=== PATIENT | male | born 1960 | race Caucasian/White ===

== ENCOUNTER → 2021-06-01 11:02 | Outpatient (BNVA) | payer BC, SELFPAY | PROVIDERS: PCP Family Medicine; Visit Provider Internal Medicine Cardiovascular Disease | DX: Z20.822 Contact with and (suspected) exposure to COVID-19 (principal) | CPT/HCPCS: 87635 ==

== ENCOUNTER 2021-06-25 06:43 | Outpatient (CLI) | payer BC, SELFPAY ==
[2021-06-25] VITALS (22 sets, daily range): BP systolic 129–174; BP diastolic 71–99; PULSE 52–67; RESP 15–20; TEMP 36.4–36.8; O2SAT 93–99; BMI 26.2
--- NOTE | 2021-06-25 07:00 | XACV_ITS ---
Ht: 183 cm Wt: 88 kg BSA: 2.12 m2 Gender: Male : 1960 Exam Type: Invasive Peripheral Vascular Procedure(s): Procedure Description: Peripheral Cath Diagnostic Procedure Procedure Description: Abdominal aortic angiography Procedure Description: Lower extremities' angiography Procedure Description: Peripheral vascular Intervention Procedure Description: PV Balloon Procedure Description: PV Stent Procedure Description: PV Atherectomy Procedure Description: Perclose Exam Priority: Routine Lower Extremity Interventional Findings Through right common femoral approach using long 6 [place] sheath with the help of glide wire and seeker were able to cross into left SFA into tibioperoneal trunk. Viper wire was exchanged with a Glidewire. Using 2.0 CSI arthrectomy bur r multiple runs of atherectomy was performed from left to ostial SFA to distal SFA. Multiple balloon angioplasties were performed. Good angiographic result was achieved in proximal to distal left SFA however very tight highly calcified ostial lesion was noted in the SFA which we were not able to open up with the balloon it was then treated with stent placement postdilated with balloon angioplasty. Excellent angiographic result with good flow was noted in proximal to distal left SFA tibioperoneal trunk with two-vessel runoff to the foot. . For inventory in detail please see the main body of the note. Conclusions Reason for peripheral angiogram: Lifestyle limiting claudication of the left leg. Abnormal CTA . Abdominal aortic angiogram: No stenosis or aneurysm noted.Bilateral common iliac, external and internal iliac arteries has luminal irregularity without significant stenosis. Bilateral common femoral and profunda femoral has luminal irregularities. Left SFA is ostially occluded reconstitute distal to the adductor canal through right collaterals, left popliteal artery has luminal regularity right SFA has luminal irregularity, right popliteal artery has luminal irregularity, bilateral tibioperoneal trunk has luminal regularity. Left anterior tibial artery has proximal total occlusion anterior tibial reconstituted through collaterals. Right anterior tibial noted to be occluded. Good single-vessel runoff with posterior tibial on the right side was noted up to the foot . null was treated with Balloon. null was treated with Balloon and Stent. Recommendations 1-Return to inpatient for close monitoring and routine cath care 2-Risk factor modification for secondary prevention 3-Statin and aspirin 81 mg life--long, if tolerated 4-Continue Plavix 75mg p.o. daily for at least three months. We will assess at the end of one year again to continue if further or not 5-Continue optimal medical management 6-Follow up with Dr. Lindo in four weeks and your primary care in 10 days. Hemodynamic Data Phase:Rest AO : 156.0 / 67.0 ( 100.0 ) @ 7:39:00 AM 165.0 / 76.0 ( 94.0 ) @ 8:07:00 AM 136.0 / 85.0 ( 110.0 ) @ 8:15:00 AM Access Site Site: Right Femoral artery Sheath Size: 6 Fr Hemost... Method: Suture Hemost... Success: Successful Procedure Details Findings Procedure Consent Obtained. Admit Source: Out Patient. Pre-Procedure Time Out. Identified patient by full name and date of as verbalized by the patient/guarantor. Does the consent match the physician's order: Yes. Accurate & Complete Informed Consent: Yes. Inpatient/Outpatient History & Physical on Chart: Yes. If H&P is completed, is and addenduem needed: N/A; If yes, is the addendum complete: N/A. Visualize and Verify Site with Patient/Guarantor: N/A. Relevant Radiology Images available: N/A. The risks, benefits, and alternatives of sedation and/or procedure were discussed by physician. The patient agrees to continue. Procedure started. Current diagnosis: PVD. PERRLA. Strong, equal hand car changer bilaterally. Lungs clear x 5 lobes. Correct patient, site and procedure confirmed by cath team. IV Site on Arrival: 20 gauge in the left anticubital. IV Fluids: 0.9% NaCl at KVO. 0 mL infused prior to lab nurse. Pre Procedural Pulses: bilateral posterior tibial was 1+. Pre Procedural Pulses: bilateral radial was 1+. Pre Procedural Pulses: right dorsalis pedis was 1+. Pre Procedural Pulses: left dorsalis pedis was Doppled. Oxygen started at 2liters/min via nasal canula. right groin was prepped with chloroprep then draped in the usual sterile fashion. Baseline sample Acquired. HR: 56 BPM. Physician notified. Physician arrived. Physician scrubbed in. Time out performed with cath team. Lidocaine 1% infiltrated to the right groin. Arterial access obtained with micropuncture set. A 5FrFr UF catheter in over wire. Abdominal aortogram performed in AP @ 10 mL/sec for a total of 30 mL. Glidewire in through UF catheter. UF catheter out over glidewire. Short 6fr sheath exchanged for 6fr 45cm flexor over glidewire. Seeker catheter inserted over the wire. Side port of sheath placed on KVO. glidewire out. Contrast hand injection through the seeker. Viperwire guidewire inserted through seeker. Seeker out over the viperwire. Orbital Atherectomy device inserted and atherectomy preformed to Left SFA. Out with orbital atherectomy device over the viper wire. Seeker in over the viperwire. Balloon inserted over the wire to the superficial femoral. Viper wire out. Glidewire in through seeker. Seeker out over glidewire. Inflation number : 1 A AB [place] 35 ATHLETIC EVENTS SCORER Catheter [id number] was prepped and advanced across the Superficial Femoral, Left , then inflated to 8 RIMA for 2:00 seconds. Inflation number: 2 The AB [place] 35 ATHLETIC EVENTS SCORER Catheter [id number] was reinflated across the Superficial Femoral, Left, to 0 RIMA for 1:34 seconds. Balloon out over wire. Results checked. Angiography preformed. Glidewire out. Angiography preformed, checking results. Angiography preformed of left groin. Glidewire in and advanced past left ostial sfa lesion. Balloon inserted over the wire to the ostial superficial femoral. Inflation number : 1 A AB [place] 35 OTW [id number] was prepped and advanced across the Ostial Superficial Femoral, Left , then inflated to 8 RIMA for 2:04 seconds. Angiography preformed, checking results. Balloon out over wire. Stent inserted over the wire to the ostial superficial femoral. Inflation Number : 2 A Absolute Pro 6.0x60mm -Lot Number#[id number] EXP 07-17-23 was prepped and advanced across the Ostial Superficial Femoral, Left. The stent was deployed. Inflation number: 3 The AB [place] 35 OTW [id number] was reinflated across the Ostial Superficial Femoral, Left, to 6 RIMA for 0:32 seconds. Inflation number: 4 The AB [place] 35 OTW [id number] was reinflated across the Ostial Superficial Femoral, Left, to 6 RIMA for 1:04 seconds. Results checked. Balloon out. Exchanging 6fr flexor for 6fr short sheath. Right leg runoff preformed. A Right femoral angiogram was performed to determine safe placement of closure device. Glidewire removed. Lidocaine 1% infiltrated to the right groin. Medication's Wasted: Nitro = 49.4 mg. Medication's Wasted: Heparin = 1000 unit. Medication's Wasted: Other = Versed 1 mg. Medication's Wasted: Other = fentanyl 75 mcg. Total IV fluids: 103 mL. PERRLA. Strong, equal hand car changer bilaterally. No VTE prophylaxis required. Post Procedure: Pulses reassessed and unchanged. Attempted to perclose and failed. Complications: None. Estimated blood loss: 5mL-10mL. Responsiveness - Normal response to verbal stimuli; alert and oriented, PERRLA. Airway - Unaffected, no intervention required; spontaneous ventilation. Circulation: W/N/L, pulses unchanged. Nausea/Vomiting: No. A Suture was successful obtaining hemostatsis at the Right Femoral artery insertion site. Arterial sheath flushed and connected to tranducer and pressure bag with heparinized saline. Post-op diagnosis: severe peripheral aterial disease. Atherectomy, balloon angioplasty to left sfa. Stent to ostial left SFA. Procedure completed. Patient transferred by bed to CPRU. Vital chart was stopped. Procedure Medications Start: 9:15 AM Stop: 9:15 AM Medication: Versed Amount: 1 mg Route: I.V. Start: 9:15 AM Stop: 9:15 AM Medication: Fentanyl Amount: 50 mcg Route: I.V. Start: 9:20 AM Stop: 9:20 AM Medication: Versed Amount: 1 mg Route: I.V. Start: 9:21 AM Stop: 9:21 AM Medication: Versed Amount: 1 mg Route: I.V. Start: 9:22 AM Stop: 9:22 AM Medication: Fentanyl Amount: 50 mcg Route: I.V. Start: 9:25 AM Stop: 9:25 AM Medication: Fentanyl Amount: 50 mcg Route: I.V. Start: 9:32 AM Stop: 9:32 AM Medication: Versed Amount: 1 mg Route: I.V. Start: 9:32 AM Stop: 9:32 AM Medication: Fentanyl Amount: 50 mcg Route: I.V. Start: 9:38 AM Stop: 9:38 AM Medication: Heparin Amount: 5000 units Route: I.V. Start: 9:45 AM Stop: 9:45 AM Medication: Versed 1 mg and Fentanyl 25 mcg Route: I.V. Start: 9:52 AM Stop: 9:52 AM Medication: Heparin Amount: 3000 units Route: I.V. Start: 9:57 AM Stop: 9:57 AM Medication: Versed 1 mg and Fentanyl 25 mcg Route: I.V. Start: 10:00 AM Stop: 10:00 AM Medication: Nitrogylcerin Amount: 400 mcg Route: I.C. Start: 10:03 AM Stop: 10:03 AM Medication: Fentanyl Amount: 25 mcg Route: I.V. Start: 10:05 AM Stop: 10:05 AM Medication: Fentanyl Amount: 25 mcg Route: I.V. Start: 10:11 AM Stop: 10:11 AM Medication: Versed 1 mg and Fentanyl 25 mcg Route: I.V. Start: 10:15 AM Stop: 10:15 AM Medication: Nitrogylcerin Amount: 400 mcg Route: I.A. I, the attending physician, have reviewed and verified all procedure medications. Yes, all medications given per verbal order History/Risk Factors Hypertension: Yes Dyslipidemia: No Peripheral Arterial Disease (PAD): No Obesity: No Renal Disease: No Tobacco Use: Current/Recent(w/in 1 year) Prior Interventions PCI: No CABG: No Valve Surgery: No Report Signatures Finalized by Serjio Lindo MD on 07/02/2021 07:50 PM
[2021-06-25 07:24] LABS: Basophils # 0.1 10^3/uL (0.0-0.1); Basophils % 0.7 %; Eosinophils # 0.1 10^3/uL (0.0-0.8); Eosinophils % 1.7 %; Hemoglobin 15.2 g/dL (11.7-16.6); Lymphocytes # 1.5 10^3/uL (0.8-4.8); Lymphocytes % 21.5 %; Mean Corpuscular Hemoglobin 30.6 pg (28.0-34.0); Mean Corpuscular Volume 92.6 fl (80-94); Monocytes # 0.6 10^3/uL (0.2-0.9); Monocytes % 8.1 %; Neutrophils # 4.82 10^3/uL (1.8-7.7); Neutrophils % 67.7 %; Nucleated Red Blood Cells % 0 %; Platelet Count 194 10^3/cmm (130-400); Red Blood Count 4.97 10^6/uL (4.1-5.3); Red Cell Distribution Width 13.4 % (12.1-15.1); White Blood Count 7.1 10^3/uL (4.0-10.0)
[2021-06-25 07:46] LABS: Anion Gap 14.1 (5-19); Blood Urea Nitrogen 13 mg/dL (8-23); Calcium 9.4 mg/dL (8.5-10.5); Carbon Dioxide 25 mmol/L (22-29); Chloride 106 mmol/L (98-107); Glomerular Filtration Rate 76.2 mL/min (90-130); Glucose 92 mg/dL (65-115); Osmolality Calculated 292 mOsm/kg (285-295); Potassium 4.1 mmol/L (3.5-5.1); Sodium 141 mmol/L (136-145)
[2021-06-25 07:57] LABS: SARS Covid-2 Antigen Negative (Negative)
[2021-06-25] MEDS: diphenhydrAMINE 50 mg Capsule PO (08:04)
--- NOTE | 2021-06-25 09:05 | P.HP_ITS ---
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 LOUISE on the left side was 0.45. He has been advised to quit smoking. He has absent pulses in the left foot. Patient has been explained all risk benefit and alternative for the procedure he understand risk for stroke major minor bleed conscious sedation urgent emergent vascular surgery amputation of the leg due to thromboembolic phenomena. He understand risk for transfusion. He would like to proceed with it. He is a candidate for dual antiplatelet therapy. Medications/Allergies* Home Medications Medication Instructions Recorded Confirmed Type lisinopril 5 mg tablet 10 mg PO DAILY tab 05/21/21 06/22/21 History meloxicam 7.5 mg tablet (Mobic) 15 mg PO DAILY tab 05/21/21 06/22/21 History omeprazole 20 mg capsule,delayed 20 mg PO DAILY 06/04/21 06/22/21 History release Allergies/Adverse Reactions Allergy/AdvReac Type Severity Reaction Status Date / Time No Known Allergies Allergy Verified 06/25/21 08:13 Current Medications: Generic Name Dose Route Start Last Admin Trade Name Freq PRN Reason Stop Dose Admin Sodium Chloride 1,000 mls @ 50 mls/hr 06/25/21 07:00 06/25/21 08:04 Sodium Chloride 0.9% IV 06/26/21 02:59 Not Given .Q20H ONE Pertinent History/Comorbid Conditions* Medical History (Updated 05/21/21 @ 20:24 by Serjio Lindo MD) Claudication, class III Family History (Updated 05/21/21 @ 12:21 by Monica George RN) Diabetes CAD (coronary artery disease) Myocardial infarct Father Brother Hypertension Mother Social History Smoking and tobacco status: current every day smoker (2 ppd X 45 years) cigarettes Packs smoked per day: 2 Years cigarettes smoked: 45 Pertinent Exam Findings alert, oriented x 3, clear to auscultation bilaterally, regular rate & rhythm and operative site marked Recommendations Surgery/Procedure today Coding Level of Care Code New Pt Acute Field Crop Technical Officer for Chg Fwd Patient Type New History Detailed Exam Detailed Medical Decision Making Moderate Complexity
--- NOTE | 2021-06-25 09:10 | W.PM.OPSUD ---
Surgery/Procedure H&P Update DATE OF PROCEDURE: June 25, 2021 DATE H&P PERFORMED: 06/25/21 PREOP DIAGNOSIS: Lifestyle limiting claudication of left PLANNED PROCEDURE: Operation Date: 06/25/21 08:30 Proposed Procedures p Peripheral Diagnostic(Bilateral) - Serjio Lindo MD AIRWAY EVAL/ANESTHESIA PLAN: ASA II and Risks, benefits & alternatives of sedation and/or procedure discussed
--- NOTE | 2021-06-25 10:45 | SUR.PHASEI ---
RECEIVED PATIENT BACK FROM THE REFUND CLERK VIA COT S/P INTERVENTION OF THE LEFT SFA. PATIENT DROWSY BUT AWAKENS EASILY TO VOICE COMMAND. ALERT AND ORIENTED X 3. SIGNIFICANT OTHER AT BEDSIDE. DR MON UPDATED THE SIGNIFICANT OTHER AT BEDSIDE. CATTLE SORTER PLACED AND VITAL SIGNS OBTAINED. 6FR SHEATH INTACT TO THE RIGHT GROIN TO PRESSURE BAG. DRESSING DRY AND INTACT. BILATERAL PT AND DP PULSES PALPABLE AT A 1. 20 G PIV TO THE LEFT AC PATENT AND INTACT. NS INFUSING PER ORDERS. POST FEMORAL ACTIVITY INSTRUCTIONS GIVEN TO THE PATIENT AND HIS SIGNIFICANT OTHER. THEY VERBALIZED THEIR UNDERSTANDING. NO OTHER ASSESSMENT CHANGES FROM PRE CATH ASSESSMENT. WILL TRANSFER TO CSU A BED BECOMES AVAILABLE.
--- NOTE | 2021-06-25 12:52 | SUR.PHASEI ---
REPORT CALLED TO [facility]. PATIENT THEN TRANSFERRED VIA BED TO ROOM 101.
[2021-06-25 14:40] LABS: Partial Thromboplastin Time 28.3 SECONDS (23.9-36.7)
[2021-06-25] MEDS: lisinopril 10 mg Tablet PO (14:40)
[2021-06-25] MEDS: aspirin 325 mg EC Tablet PO (14:40)
[2021-06-26] VITALS (42 sets, daily range): BP systolic 109–153; BP diastolic 64–92; PULSE 51–91; RESP 11–32; TEMP 36.8; O2SAT 88–97
[2021-06-26 03:46] LABS: Basophils % 0.5 %; Eosinophils # 0.2 10^3/uL (0.0-0.8); Eosinophils % 2.7 %; Hematocrit 41.4 % (42.0-52.0); Lymphocytes # 1.5 10^3/uL (0.8-4.8); Lymphocytes % 19.7 %; Mean Corpuscular HGB Conc 33.8 g/dL (30.0-36.0); Mean Corpuscular Hemoglobin 30.9 pg (28.0-34.0); Mean Corpuscular Volume 91.4 fl (80-94); Mean Platelet Volume 11.6 fL (7.4-10.4); Monocytes # 0.8 10^3/uL (0.2-0.9); Monocytes % 10.7 %; Neutrophils # 4.86 10^3/uL (1.8-7.7); Neutrophils % 66.1 %; Nucleated Red Blood Cells % 0 %; Platelet Count 174 10^3/cmm (130-400); Red Blood Count 4.53 10^6/uL (4.1-5.3); Red Cell Distribution Width 13.3 % (12.1-15.1); White Blood Count 7.4 10^3/uL (4.0-10.0)
[2021-06-26 04:13] LABS: Anion Gap 12.5 (5-19); Blood Urea Nitrogen 11 mg/dL (8-23); Calcium 8.3 mg/dL (8.5-10.5); Carbon Dioxide 25 mmol/L (22-29); Chloride 103 mmol/L (98-107); Glomerular Filtration Rate 98.6 mL/min (90-130); Glucose 91 mg/dL (65-115); Osmolality Calculated 281 mOsm/kg (285-295); Potassium 4.5 mmol/L (3.5-5.1); Sodium 136 mmol/L (136-145)
--- NOTE | 2021-06-26 08:44 | PC.CHAP ---
Pastoral Care Encounter/Spiritual Assessment Type of Contact [] Declined compliance examiner visit [] Patient/Family/Request visit [] Outpatient visit [] Follow-up visit [] Physician referral [] Code/Alert [x] Routine visit [] Staff referral [] Actively dying [] Patient sleeping [] Family support [] [] Out of room [] Palliative care [] [] Receiving care in room [] Pre-surgical visit [] Trauma [] Long length of stay [] ICU visit [] Other: Relational/Emotional Strength [x] Patient feels connected with others/family/visitors/staff [] Distress [] Loneliness/isolation [] Abandonment Spirituality of Patient [x] Person of Lisa [] Attends Presybeterian of their Lisa [] Believes in Prayer [] Reads Bible or Orthodox materials [] There are Spiritual issues to be addressed Audiovisual Aids Technician Interventions [] Prayer [x] Active listening [x] Non-anxious presence [x] Spiritual/emotional support [] Crisis/trauma care [] Spiritual counseling [] Bereavement support [] Provided bereavement packet [] Provided Bible/devotional materials [] Provided toy/stuffed animal, coloring book to patient or family member [] Provided Communion [] Anointing/[place] [] Salvation [x] Completed spiritual assessment [] Other: Impact on Illness or Injury [] Angry [] Fearful [] Anxious [] Often cries [] Exhaustion [] Unable to work [] Unable to attend sikh [] Unable to walk/stand [] Unable to read [] Unable to drive [] Unable to eat/drink [] Unable to sleep [] Unable to be with family [] Patient intubated [] Other: Summary Pt stated his step daughter has been present but just left to get him a cup of coffee. He lives around but his step daughter resides in and indicated she is staff at the hospital. He has no children of his own, but has three step children, but . Still has a good relationship with step children. Pt indicated he grew up in and around Church churches and described his 84 year old mother as a preacher. Pt was reluctant to speak about spiritual matters. Declined prayer. Time spent with patient 10m
--- NOTE | 2021-06-26 09:34 | PC.NURSE ---
Spoke with Dr judd with concerns of patients medication orders for 325 Aspirin daily and no plavix following stent placement on 06/25/21 instructions to Avendaño aspirin dose to 81mg po daily and add Plavix 75mg PO daily
[2021-06-26] MEDS: aspirin 81 mg EC Tablet PO (10:11)
[2021-06-26] MEDS: clopidogrel 75 mg Tablet PO (10:11)
--- NOTE | 2021-06-26 11:42 | P.DS_ITS ---
Discharge Providers Date of Discharge: June 26, 2021 Attending Provider at Discharge: Serjio Lindo MD Primary Care Provider: Scot Reina MD Reason for Visit Reason for Visit: 71844 i73.9 Brief History: 60-year-old male past medical history significant for tobacco abuse hypertension hyperlipidemia for lifestyle limiting claudication underwent peripheral angiogram noted to have chronically occluded ostial to distal SFA. It was treated with arthrectomy and balloon angioplasty. Excellent angiographic result was achieved. No overnight event postop care remain uncomplicated. This morning patient is walking around without any difficulty. He has good lower extremity pulses including DP and posterior tibial. He is being discharged home. Right groin wound looks good Physical Exam Chest: OTHER: GENERAL: Patient is alert, awake and oriented x3. NECK: No jugular vein distension. HEENT: No cyanosis. No icterus. No pallor. HEART: Regular S1 and S2. No murmur, rub or gallop. LUNGS: Clear to auscultate bilaterally. ABDOMEN: Soft, nontender and nondistended. Positive bowel sounds. No guarding, rebound or tenderness. CENTRAL NERVOUS SYSTEM: Grossly nonfocal. EXTREMITIES: Lower extremities without edema bilaterally. Pulses palpable in the lower extremities, both dorsalis pedis and posterior tibial. Right groin looks good no hematoma no bruising Discharge Data Studies Completed and Pending Pending at discharge Category Date Time Status PROTEIN PURIFICATION SCIENTIST request for service Routine Exams 06/25/21 07:00 Taken Laboratory Results WBC 7.4 10^3/uL (4.0-10.0) 06/26/21 02:40 RBC 4.53 10^6/uL (4.1-5.3) 06/26/21 02:40 Hgb 14.0 g/dL (11.7-16.6) 06/26/21 02:40 Hct 41.4 % (42.0-52.0) L 06/26/21 02:40 MCV 91.4 fl (80-94) 06/26/21 02:40 MCH 30.9 pg (28.0-34.0) 06/26/21 02:40 MCHC 33.8 g/dL (30.0-36.0) 06/26/21 02:40 RDW 13.3 % (12.1-15.1) 06/26/21 02:40 Plt Count 174 10^3/cmm (130-400) 06/26/21 02:40 MPV 11.6 fL (7.4-10.4) H 06/26/21 02:40 Neut % (Auto) 66.1 % 06/26/21 02:40 Lymph % (Auto) 19.7 % 06/26/21 02:40 [place] % (Auto) 10.7 % 06/26/21 02:40 Eos % (Auto) 2.7 % 06/26/21 02:40 Baso % (Auto) 0.5 % 06/26/21 02:40 Neut # (Auto) 4.86 10^3/uL (1.8-7.7) 06/26/21 02:40 Lymph # (Auto) 1.5 10^3/uL (0.8-4.8) 06/26/21 02:40 [place] # (Auto) 0.8 10^3/uL (0.2-0.9) 06/26/21 02:40 Eos # (Auto) 0.2 10^3/uL (0.0-0.8) 06/26/21 02:40 Baso # (Auto) 0.0 10^3/uL (0.0-0.1) 06/26/21 02:40 Nucleated RBC % (auto) 0 % 06/26/21 02:40 Nucleated RBCs # 0.0 /100WBC 06/26/21 02:40 APTT 28.3 SECONDS (23.9-36.7) 06/25/21 14:16 Sodium 136 mmol/L (136-145) 06/26/21 02:40 Potassium 4.5 mmol/L (3.5-5.1) 06/26/21 02:40 Chloride 103 mmol/L (98-107) 06/26/21 02:40 Carbon Dioxide 25 mmol/L (22-29) 06/26/21 02:40 Anion Gap 12.5 (5-19) 06/26/21 02:40 BUN 11 mg/dL (8-23) 06/26/21 02:40 Creatinine 0.8 mg/dL (0.7-1.2) 06/26/21 02:40 GFR Calculation 98.6 mL/min (90-130) 06/26/21 02:40 Glucose 91 mg/dL (65-115) 06/26/21 02:40 Calculated Osmolality 281 mOsm/kg (285-295) L 06/26/21 02:40 Calcium 8.3 mg/dL (8.5-10.5) L 06/26/21 02:40 SARS-CoV-2 Ag (Rapid) Negative (Negative) 06/25/21 07:02 Vitals Last Vital Signs Temp 98.3 F 06/26/21 04:14 Pulse 66 06/26/21 09:46 Resp 20 H 06/26/21 09:46 BP 113/64 06/26/21 09:46 Pulse Ox 95 06/26/21 09:46 Discharge Plan Discharge Patient Disposition: Home Prescriptions: New clopidogrel 75 mg Tablet 75 mg PO DAILY Qty: 90 3RF aspirin 81 mg Tablet,Delayed Release (Dr/Ec) 81 mg PO DAILY Qty: 90 3RF atorvastatin 20 mg tablet 20 mg PO QPM Qty: 30 4RF Continued lisinopril 5 mg tablet 10 mg PO DAILY 0RF meloxicam [Mobic] 7.5 mg tablet 15 mg PO DAILY 0RF omeprazole 20 mg Capsule,Delayed Release(Dr/Ec) 20 mg PO DAILY Qty: 30 3RF Discharge Orders: Discharge Order (Routine); Ordered 06/26/21 Ordered By: Serjio Lindo Referrals: Dominic Bryant M.D [Physician] - 6 months (Please follow-up with Dr. Bryant on Dec.18 at 2:00P.M. Your previous appointment on August 20 at has been cancelled. If have any questions or need to reschedule. Please call [phone]) Lisa Zazueta FNP [Nurse Practitioner] - (Please follow-up with Lisa Zazueta on at 9:15A.M. If you have any questions or need to reschedule. Please call ) Diet: Cardiac Activity: Increase activity as tolerated Patient Instructions: Aspirin (By mouth), Atorvastatin (By mouth), Clopidogrel (By mouth), Peripheral Vascular Stent Placement (DC), Peripheral Vascular Angioplasty (DC), Post Angiogram Home Care Instructions, Quitting Smoking Activity Restrictions/Additional Instructions: Follow-up with Ms. Lisa Zazueta in 7 days. Follow-up with Dr. Bryant in 6- month. Please quit smoking. Continue Plavix for 3 months at least Discharge Date/Time: 06/26/21 12:20 Discharge Attestations Time Spent in Discharge Care*: less than 30 min Quality Metrics Clinical Quality Measures [ No reported AMI, CVA or VTE this stay] Coding Level of Care Code Established Pt Acute Chg FW DC note Patient Type Established History Detailed Exam Detailed Medical Decision Making Moderate Complexity
--- NOTE | 2021-06-26 12:20 | PC.NURSE ---
Discharge Note Patient discharged to Home via private vehicle accompanied by Family. Discharge instructions reviewed with patient and/or entry level account representative. Mobile pharmacy medications and/or prescriptions provided. Belongings/home medications returned.
== END 2021-06-26 12:20 | disposition home or self-care (01) ==
LOC: CCL 07:50 → CSU 13:12
PROVIDERS: PCP Family Medicine; Visit Provider Internal Medicine Cardiovascular Disease
DX: I70.222 Atherosclerosis of native arteries of extremities with rest pain, left leg (principal); I10 Essential (primary) hypertension; Z82.49 Family history of ischemic heart disease and other diseases of the circulatory system; Z83.3 Family history of diabetes mellitus; F17.210 Nicotine dependence, cigarettes, uncomplicated; E78.5 Hyperlipidemia, unspecified
CPT/HCPCS: 36415; 37227; 75625; 75716; 80048; 85025; 85730; 87426; C1724; C1725; C1760; C1769; C1876; C1887; C1894; J1644; J2250; J3010; J3490; J7030; Q0163; Q9967

== ENCOUNTER → 2021-07-04 11:45 | Outpatient (BNVA) | payer BC, SELFPAY | PROVIDERS: PCP Family Medicine; Visit Provider Nurse Practitioner Family | DX: Z09 Encounter for follow-up examination after completed treatment for conditions other than malignant neoplasm (principal); I73.9 Peripheral vascular disease, unspecified | CPT/HCPCS: 80048 ==

== ENCOUNTER 2022-03-04 12:14 | Outpatient (CLI) | payer BC, SELFPAY ==
[2022-03-04 12:54] LABS: Basophils # 0.1 10^3/uL (0.0-0.1); Eosinophils # 0.1 10^3/uL (0.0-0.8); Eosinophils % 2.3 %; Hematocrit 45.5 % (42.0-52.0); Hemoglobin 14.8 g/dL (11.7-16.6); Lymphocytes # 1.5 10^3/uL (0.8-4.8); Mean Corpuscular HGB Conc 32.5 g/dL (30.0-36.0); Mean Corpuscular Hemoglobin 30.8 pg (28.0-34.0); Mean Corpuscular Volume 94.8 fl (80-94); Mean Platelet Volume 12.2 fL (7.4-10.4); Monocytes # 0.5 10^3/uL (0.2-0.9); Monocytes % 8.7 %; Neutrophils # 3.88 10^3/uL (1.8-7.7); Neutrophils % 63.7 %; Nucleated Red Blood Cells % 0 %; Platelet Count 171 10^3/cmm (130-400); Red Cell Distribution Width 13.1 % (12.1-15.1); White Blood Count 6.1 10^3/uL (4.0-10.0)
[2022-03-04 13:06] LABS: INR 0.98 (0.83-1.21); Prothrombin Time (Patient) 13.3 Seconds (12.0-15.1)
[2022-03-04 13:39] LABS: Anion Gap 11.3 (5-19); Blood Urea Nitrogen 11 mg/dL (8-23); Calcium 9.4 mg/dL (8.5-10.5); Carbon Dioxide 27 mmol/L (22-29); Chloride 104 mmol/L (98-107); Glomerular Filtration Rate 68.1 mL/min (90-130); Glucose 96 mg/dL (65-115); Osmolality Calculated 285 mOsm/kg (285-295); Potassium 4.3 mmol/L (3.5-5.1); Sodium 138 mmol/L (136-145)
== END 2022-03-04 12:15 | disposition home or self-care (01) ==
LOC: LAB 12:16
PROVIDERS: PCP Family Medicine; Visit Provider Internal Medicine
DX: I73.9 Peripheral vascular disease, unspecified (principal); R58 Hemorrhage, not elsewhere classified
CPT/HCPCS: 36415; 80048; 85025; 85610

== ENCOUNTER 2022-03-07 07:08 | Outpatient (CLI) | payer BC, SELFPAY ==
[2022-03-06 11:48] VITALS: BMI 26.0
[2022-03-07] VITALS (9 sets, daily range): BP systolic 144–167; BP diastolic 77–97; PULSE 42–60; RESP 10–18; TEMP 36.8; O2SAT 96–99
--- NOTE | 2022-03-07 08:30 | XACV_ITS ---
Ht: 183 cm Wt: 87 kg BSA: 2.11 m2 Any Known Allergies: No known allergies Gender: Male : 1960 Exam Type: Invasive Peripheral Vascular Procedure(s): Procedure Description: Peripheral Cath Diagnostic Procedure Procedure Description: Lower extremities' angiography Procedure Description: Peripheral vascular Intervention Procedure Description: PV Balloon Exam Priority: Routine Abdominal Diagnostic Findings Distal abdominal aorta: Patent. Lower Extremity Diagnostic Findings Indication: Patient has been having severe, lifestyle limiting claudication specially left lower extremity. It is causing difficulty with working as well. Right lower extremity Right common iliac artery: Patent Right external iliac artery: Patent Right internal iliac artery has diffuse disease Right common femoral artery: Patent Right profunda: Patent Right SFA: Patent Right popliteal artery: Patent Right anterior tibial artery: Occluded Right TP segment: Patent Right posterior tibial artery: Patent Right peroneal artery: Occluded. Left lower extremity Left common iliac artery: Patent Left external iliac artery: Patent Left external iliac artery has diffuse disease Left common femoral artery: Patent and Left profunda: Patent Left SFA: Has patent ostial stent with mild in-stent restenosis. In mid to distal segment SFA has critical 95% stenosis. Left popliteal artery: Patent Left anterior tibial artery: Occluded Left TP segment: Patent Left peroneal artery: Patent Left posterior tibial artery: Patent. Left Proximal Superficial Femoral Artery: 70% stenosis. Left Mid-longitudinal Superficial Femoral Artery: 70% stenosis. Left Distal Superficial Femoral Artery: 70% stenosis. Lower Extremity Interventional Findings Procedure detail: We obtained access in right common femoral artery. Using UF catheter abdominal aortic angiogram with runoff was performed. This was followed by placement of long sheath extending to the left external iliac artery. IV heparin was administered. Using Glidewire we crossed the stenosis. The stenosis was dilated with 6.0 x 100 mm balloon. We also dilated to the ostial SFA stent. final angiogram was performed that showed excellent vessel expansion and no significant stenosis in SFA. At this time Glidewire was removed and short sheath was inserted in right common femoral artery. This was followed by runoff of right lower extremity through the short sheath. Sheath was sutured in place for removal later. Patient left the Hoop Cutter in a stable condition.. Left Proximal Superficial Femoral Artery: 40-50 % stenosis treated with AB ARMADA 35 OTW [id number]. Left Mid-longitudinal Superficial Femoral Artery: 95 % stenosis treated with AB ARMADA 35 OTW [id number]. Left Distal Superficial Femoral Artery: 95 % stenosis treated with AB ARMADA 35 OTW [id number]. Conclusions Severe mid to distal left SFA stenosis s/p successful revascularization with balloon angioplasty. Left Proximal Superficial Femoral Artery was treated with Balloon. Left Mid-longitudinal Superficial Femoral Artery was treated with Balloon. Left Distal Superficial Femoral Artery was treated with Balloon. Recommendations Continue aspirin and Plavix. Smoking cessation recommended again. Outpatient cardiology follow-up in 4 weeks. Hemodynamic Data Phase:Rest AO : 11.0 / 8.0 ( 9.0 ) @ 10:00:00 AM 156.0 / 76.0 ( 107.0 ) @ 10:06:00 AM Access Site Site: Right Femoral artery Sheath Size: 6 Fr Hemost... Method: Suture Hemost... Success: Successful Procedure Details Findings Procedure Consent Obtained. Pre-Procedure Time Out. Identified patient by full name and date of as verbalized by the patient/guarantor. Does the consent match the physician's order: Yes. Accurate & Complete Informed Consent: Yes. Inpatient/Outpatient History & Physical on Chart: Yes. If H&P is completed, is and addenduem needed: No. Visualize and Verify Site with Patient/Guarantor: N/A. Relevant Radiology Images available: Yes. Patient's family will be in CPRU room #4. Dr. Bryant will update at the completion of the case. Equipment: 6F - Femoral. Cardiac Cath Pack. ACIST Manifold Kit Model BT 2000. Heparinized Saline (2 units/mL), 1000 mL bag. Kit, Micropuncture. The risks, benefits, and alternatives of sedation and/or procedure were discussed by physician. The patient agrees to continue. Procedure started. Correct patient, site and procedure confirmed by cath team. Current diagnosis: PAD. PERRLA. Strong, equal hand kitman bilaterally. Lungs clear x 5 lobes. IV Site on Arrival: 20 gauge in the left anticubital. IV Fluids: 0.9% NaCl at KVO. 0 mL infused prior to petroleum refinery laborer. To infuse at 75ml/hr. Pre Procedural Pulses: right dorsalis pedis was 1+. Pre Procedural Pulses: left dorsalis pedis was Doppled. Pre Procedural Pulses: right posterior tibial was Doppled. Pre Procedural Pulses: left posterior tibial was 1+. Oxygen started at 2liters/min via nasal canula. bilateral groins was prepped with chloroprep then draped in the usual sterile fashion. Baseline sample Acquired. HR: 51 BPM. Physician arrived. Physician scrubbed in. Time out performed with cath team. Lidocaine 1% infiltrated to the right groin. Arterial access obtained with micropuncture set. A 5 Fr UF catheter in over wire. Abdominal aortogram performed in AP @ 10 mL/sec for a total of 30 mL. Add inventory: 0.035 x 260cm Stiff angled glidewire. Glidewire in through the UF to advance. Catheter removed over the glide wire. Sheath upsized to a 6 Fr. Left common femoral selected and arteriogram with runoff performed @ 10 mL/sec for a total of 30 mL. Left common femoral selected and arteriogram with runoff performed @ 10 mL/sec for a total of 30 mL in DSA. Left common femoral selected and arteriogram with runoff performed @ 10 mL/sec for a total of 10 mL. Inflation number : 1 A AB ARMADA 35 OTW [id number] was prepped and advanced across the Mid Superficial Femoral, Left , then inflated to 6 RIMA for 1:35 seconds. Inflation number: 2 The AB ARMADA 35 OTW [id number] was reinflated across the Mid Superficial Femoral, Left, to 6 RIMA for 1:03 seconds. Inflation number: 1 The AB ARMADA 35 OTW [id number] was reinflated across the Distal Superficial Femoral, Left, to 4 RIMA for 1:02 seconds. Inflation number: 1 The AB ARMADA 35 OTW [id number] was reinflated across the Proximal Superficial Femoral, Left, to 4 RIMA for 0:48 seconds. Balloon out over wire. Glidewire advanced across the lesion in the left SFA. Glidewire out. Left common femoral selected and arteriogram with runoff performed @ 10 mL/sec for a total of 30 mL. Sheath upsized to a 6 Fr. Sheath injected in Right common femoral artery and runoff performed @ 10mL/sec for a total of 30mL. Sheath injected in Right common femoral artery and runoff performed @ 10mL/sec for a total of [address] Bryant scrubbed out. A Suture was successful obtaining hemostatsis at the Right Femoral artery insertion site. Sheath(s) sutured into position with 2-0 silk and sterile 4x4's and Op-site applied over the site. No oozing or signs and symptoms of hematoma noted. Arterial sheath flushed and connected to tranducer and pressure bag with heparinized saline. Post Procedure: Pulses reassessed and unchanged. PERRLA. Strong, equal hand kitman bilaterally. No VTE prophylaxis required. Medication's Wasted: Nitro = 49.6 mg. Medication's Wasted: Heparin = 1000 units. Total IV fluids: 100 mL. Post-op diagnosis: Balloon angioplasty of left SFA. Complications: none. Estimated blood loss: 5mL-10mL. Responsiveness - Normal response to verbal stimuli; alert and oriented, PERRLA. Airway - Unaffected, no intervention required; spontaneous ventilation. Circulation: W/N/L, pulses unchanged. Nausea/Vomiting: No. Vital chart was stopped. Procedure completed. Patient transferred by bed to ICU. Procedure Medications Start: 8:52 AM Stop: 8:52 AM Medication: Benadryl Amount: 50 mg Route: I.V. Start: 8:52 AM Stop: 8:52 AM Medication: Versed Amount: 1 mg Route: I.V. Start: 8:52 AM Stop: 8:52 AM Medication: Fentanyl Amount: 50 mcg Route: I.V. Start: 8:55 AM Stop: 8:55 AM Medication: Versed Amount: 1 mg Route: I.V. Start: 8:56 AM Stop: 8:56 AM Medication: Versed Amount: 1 mg Route: I.V. Start: 8:56 AM Stop: 8:56 AM Medication: Fentanyl Amount: 50 mcg Route: I.V. Start: 9:13 AM Stop: 9:13 AM Medication: Heparin Amount: 5000 units Route: I.V. Start: 9:16 AM Stop: 9:16 AM Medication: Versed Amount: 1 mg Route: I.V. Start: 9:23 AM Stop: 9:23 AM Medication: Nitrogylcerin Amount: 400 mcg Route: I.A. Start: 9:47 AM Stop: 9:47 AM Medication: Plavix Amount: 300 mg Route: P.O. I, the attending physician, have reviewed and verified all procedure medications. Yes, all medications given per verbal order History/Risk Factors Hypertension: Yes Dyslipidemia: No Peripheral Arterial Disease (PAD): Yes Obesity: No Renal Disease: No Tobacco Use: Current/Recent(w/in 1 year) Prior Interventions PCI: No CABG: No Valve Surgery: No Report Signatures Finalized by Dominic Bryant MD on 03/07/2022 05:26 PM
--- NOTE | 2022-03-07 08:50 | W.PM.OPSUD ---
Surgery/Procedure H&P Update DATE OF PROCEDURE: March 07, 2022 DATE H&P PERFORMED: 06/25/21 PREOP DIAGNOSIS: Lifestyle limiting claudication PRIMARY INDICATION FOR PROCEDURE: Life style limiting claudication PLANNED PROCEDURE: Operation Date: 03/07/22 08:30 Proposed Procedures p Peripheral Angio 39542,I73.9(Not Applicable) - Dominic Bryant M.D Possible percutaneous intervention PATIENT REASSESSED PRIOR TO SEDATION, WITH NO CHANGE NOTED: Yes PHYSICAL EXAM: alert, oriented x 3, clear to auscultation bilaterally and regular rate & rhythm AIRWAY EVAL/ANESTHESIA PLAN: ASA III, Local Anesthesia, Risks, benefits & alternatives of sedation and/or procedure discussed and Patient agrees to continue as planned ADDITIONAL INFORMATION: Moderate sedation
[2022-03-07 11:58] LABS: Partial Thromboplastin Time 54.8 SECONDS (23.9-36.7)
[2022-03-07] MEDS: acetaminophen 325 mg Tablet 650 MG PO (12:00)
--- NOTE | 2022-03-07 12:51 | PC.CHAP ---
x Pastoral Care Encounter/Spiritual Assessment Type of Contact [] Declined senior technical support engineer visit [] Patient/Family/Request visit [] Outpatient visit [] Follow-up visit [] Physician referral [] Code/Alert [x] Routine visit [] Staff referral [] Actively dying [] Patient sleeping [] Family support [] [] Out of room [] Palliative care [] [] Receiving care in room [] Pre-surgical visit [] Trauma [] Long length of stay [x] ICU visit [] Other: Relational/Emotional Strength [] Patient feels connected with others/family/visitors/staff [] Distress [] Loneliness/isolation [] Abandonment Spirituality of Patient [] Person of Lisa [] Attends Anabaptism of their Lisa [] Believes in Prayer [] Reads Bible or Jewish materials [] There are Spiritual issues to be addressed Rn Wound Care Interventions [] Prayer [] Active listening [] Non-anxious presence [] Spiritual/emotional support [] Crisis/trauma care [] Spiritual counseling [] Bereavement support [] Provided bereavement packet [] Provided Bible/devotional materials [] Provided toy/stuffed animal, coloring book to patient or family member [] Provided Communion [] Anointing/[place] [] Salvation [x] Completed spiritual assessment [] Other: Impact on Illness or Injury [] Angry [] Fearful [] Anxious [] Often cries [] Exhaustion [] Unable to work [] Unable to attend faith [] Unable to walk/stand [] Unable to read [] Unable to drive [] Unable to eat/drink [] Unable to sleep [] Unable to be with family [] Patient intubated [] Other: Summary Time spent with patient x
[2022-03-07] MEDS: atorvastatin 40 mg Tablet 20 MG PO (17:38)
[2022-03-07] MEDS: temazepam 15 mg Capsule PO (19:37)
[2022-03-07] MEDS: sodium chloride 0.9% 1,000 ML 100 ML IV (19:38)
[2022-03-08 05:11] LABS: Basophils # 0.1 10^3/uL (0.0-0.1); Eosinophils # 0.2 10^3/uL (0.0-0.8); Eosinophils % 2.8 %; Hematocrit 41.6 % (42.0-52.0); Hemoglobin 13.6 g/dL (11.7-16.6); Lymphocytes # 1.3 10^3/uL (0.8-4.8); Lymphocytes % 21.8 %; Mean Corpuscular HGB Conc 32.7 g/dL (30.0-36.0); Mean Corpuscular Hemoglobin 31.5 pg (28.0-34.0); Mean Corpuscular Volume 96.3 fl (80-94); Mean Platelet Volume 11.6 fL (7.4-10.4); Monocytes # 0.6 10^3/uL (0.2-0.9); Monocytes % 10.4 %; Neutrophils # 3.68 10^3/uL (1.8-7.7); Neutrophils % 63.8 %; Nucleated Red Blood Cells % 0 %; Platelet Count 150 10^3/cmm (130-400); Red Blood Count 4.32 10^6/uL (4.1-5.3); White Blood Count 5.8 10^3/uL (4.0-10.0)
[2022-03-08 05:46] VITALS: PULSE 47
[2022-03-08 05:52] LABS: Anion Gap 11.3 (5-19); Blood Urea Nitrogen 10 mg/dL (8-23); Calcium 8.8 mg/dL (8.5-10.5); Carbon Dioxide 25 mmol/L (22-29); Chloride 107 mmol/L (98-107); Glucose 90 mg/dL (65-115); Osmolality Calculated 287 mOsm/kg (285-295); Potassium 4.3 mmol/L (3.5-5.1); Sodium 139 mmol/L (136-145)
--- NOTE | 2022-03-08 07:34 | PM.DCS ---
Discharge Providers Date of Admission: 03/07/2022 Date of Discharge: March 08, 2022 Attending Provider at Admission: Dominic Bryant MD Attending Provider at Discharge: Dominic Bryant M.D Primary Care Provider: Scot Reina MD Reason for Visit Reason for Visit: I73.9 Peripheral vascular disease, unspecified Brief History: 61-year-old man reports medical history of PAD, hypertension presented for outpatient peripheral angiogram with possible intervention secondary to severe lifestyle limiting and work limiting claudication symptoms. Hospital Course Hospital Course Patient's peripheral angiogram showed severe, 95% stenosis in the mid to distal SFA. He underwent successful revascularization with balloon angioplasty. Patient was observed overnight and stayed stable. His labs are normal. Smoking cessation strongly recommended. Physical Exam Narrative: GENERAL: Patient is alert, awake and oriented x3. [] NECK: No jugular vein distension. [] HEENT: No cyanosis. No icterus. No pallor. [] HEART: Regular S1 and S2. No murmur, rub or gallop. [] LUNGS: Clear to auscultate bilaterally. [] ABDOMEN: Soft CENTRAL NERVOUS SYSTEM: Grossly nonfocal. [] EXTREMITIES: Lower extremities with 1+ edema bilaterally.? 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 TEACHER PRIMARY request for service Routine Exams 03/07/22 08:30 Completed Laboratory Results WBC 5.8 10^3/uL (4.0-10.0) 03/08/22 04:46 RBC 4.32 10^6/uL (4.1-5.3) 03/08/22 04:46 Hgb 13.6 g/dL (11.7-16.6) 03/08/22 04:46 Hct 41.6 % (42.0-52.0) L 03/08/22 04:46 MCV 96.3 fl (80-94) H 03/08/22 04:46 MCH 31.5 pg (28.0-34.0) 03/08/22 04:46 MCHC 32.7 g/dL (30.0-36.0) 03/08/22 04:46 RDW 13.0 % (12.1-15.1) 03/08/22 04:46 Plt Count 150 10^3/cmm (130-400) 03/08/22 04:46 MPV 11.6 fL (7.4-10.4) H 03/08/22 04:46 Neut % (Auto) 63.8 % 03/08/22 04:46 Lymph % (Auto) 21.8 % 03/08/22 04:46 [place] % (Auto) 10.4 % 03/08/22 04:46 Eos % (Auto) 2.8 % 03/08/22 04:46 Baso % (Auto) 1.0 % 03/08/22 04:46 Neut # (Auto) 3.68 10^3/uL (1.8-7.7) 03/08/22 04:46 Lymph # (Auto) 1.3 10^3/uL (0.8-4.8) 03/08/22 04:46 [place] # (Auto) 0.6 10^3/uL (0.2-0.9) 03/08/22 04:46 Eos # (Auto) 0.2 10^3/uL (0.0-0.8) 03/08/22 04:46 Baso # (Auto) 0.1 10^3/uL (0.0-0.1) 03/08/22 04:46 Nucleated RBC % (auto) 0 % 03/08/22 04:46 Nucleated RBCs # 0.0 /100WBC 03/08/22 04:46 APTT 54.8 SECONDS (23.9-36.7) H 03/07/22 11:39 Sodium 139 mmol/L (136-145) 03/08/22 04:46 Potassium 4.3 mmol/L (3.5-5.1) 03/08/22 04:46 Chloride 107 mmol/L (98-107) 03/08/22 04:46 Carbon Dioxide 25 mmol/L (22-29) 03/08/22 04:46 Anion Gap 11.3 (5-19) 03/08/22 04:46 BUN 10 mg/dL (8-23) 03/08/22 04:46 Creatinine 1.0 mg/dL (0.7-1.2) 03/08/22 04:46 GFR Calculation 76.0 mL/min (90-130) L 03/08/22 04:46 Glucose 90 mg/dL (65-115) 03/08/22 04:46 Calculated Osmolality 287 mOsm/kg (285-295) 03/08/22 04:46 Calcium 8.8 mg/dL (8.5-10.5) 03/08/22 04:46 Vitals Last Vital Signs Temp 98.2 F 03/07/22 08:21 Pulse 47 L 03/08/22 05:46 Resp 18 03/07/22 19:00 BP 167/97 03/07/22 12:00 Pulse Ox 96 03/07/22 19:00 O2 Del Method 03/07/22 19:00 Discharge Plan Discharge Patient Disposition: Home Prescriptions: New cilostazol 50 mg tablet 50 mg PO BID Qty: 120 2RF Continued lisinopril 5 mg tablet 10 mg PO DAILY atorvastatin 20 mg tablet 20 mg PO QPM Qty: 30 4RF clopidogrel 75 mg Tablet 75 mg PO DAILY Qty: 90 3RF aspirin 81 mg Tablet,Delayed Release (Dr/Ec) 81 mg PO DAILY Qty: 90 3RF Discontinued meloxicam [Mobic] 7.5 mg tablet 15 mg PO DAILY Discharge Orders: Discharge Order (Routine); Ordered 03/08/22 Ordered By: Dominic Bryant Referrals: Dominic Bryant M.D [Physician] - 6 Weeks Lisa Zazueta FNP [Nurse Practitioner] - 7-10 days Diet: Cardiac Activity: Increase activity as tolerated Patient Instructions: Peripheral Vascular Angioplasty (DC) Activity Restrictions/Additional Instructions: Please do not lift more than 10 pounds of weight for the next 5 days Stand Alone Forms: Work/School Release Discharge Attestations Time Spent in Discharge Care*: less than 30 min Quality Metrics Clinical Quality Measures [ No reported AMI, CVA or VTE this stay] Coding Level of Care Code Acute Chg FW DC note
[2022-03-08] MEDS: acetaminophen 325 mg Tablet 650 MG PO (08:25)
[2022-03-08 09:00] VITALS: BP 149/86
--- NOTE | 2022-03-08 10:01 | PC.NURSE ---
assumed care at this time
--- NOTE | 2022-03-08 11:11 | PC.NURSE ---
All d/c instructions educated to patient, no questions or concerns expressed, patient's work leave paper work filled out. patient out of facility at this time transported home by
== END 2022-03-08 11:14 | disposition home or self-care (01) ==
LOC: CCL 07:14 → ICU 08:51
PROVIDERS: PCP Family Medicine; Visit Provider Internal Medicine
DX: I70.202 Unspecified atherosclerosis of native arteries of extremities, left leg (principal); I10 Essential (primary) hypertension; E78.5 Hyperlipidemia, unspecified; F17.210 Nicotine dependence, cigarettes, uncomplicated
CPT/HCPCS: 37224; 75625; 75716; 80048; 85025; 85730; 99152; 99153; C1725; C1769; C1887; C1894; J1200; J1644; J2250; J3010; J3490; J7030; Q9967

== ENCOUNTER → 2022-03-19 14:34 | Outpatient (BNVA) | payer BC, SELFPAY | PROVIDERS: PCP Family Medicine; Visit Provider Nurse Practitioner Family | DX: I73.9 Peripheral vascular disease, unspecified (principal) | CPT/HCPCS: 36415; 80048 ==

== ENCOUNTER → 2024-10-08 09:40 | Outpatient (BNVA) | payer BC, SELFPAY | PROVIDERS: PCP Family Medicine; Visit Provider Internal Medicine | DX: I73.9 Peripheral vascular disease, unspecified (principal) | CPT/HCPCS: 80048; 85025 ==

== ENCOUNTER 2024-10-12 07:02 | Outpatient (CLI) | payer BC, SELFPAY ==
[2024-10-12] VITALS (24 sets, daily range): BP systolic 114–146; BP diastolic 68–94; PULSE 56–73; RESP 10–25; TEMP -7.7–36.6; O2SAT 93–99
--- NOTE | 2024-10-12 07:30 | XACV_ITS ---
Ht: 183 cm Wt: 88 kg BSA: 2.13 m2 Any Known Allergies: No known allergies Gender: Male : 1960 Exam Type: Invasive Peripheral Vascular Procedure(s): Procedure Description: Peripheral Cath Diagnostic Procedure Procedure Description: Abdominal aortic angiography Procedure Description: Lower extremities' angiography Exam Priority: Routine Abdominal Diagnostic Findings Distal abdominal aorta is patent. Lower Extremity Diagnostic Findings INDICATION: 64 year old man with significant PAD history and having severe lifestyle limiting claudication. CTA showing severe PAD mainly below the knee. Left leg symptoms worse than the right side. Plan for peripheral angiogram with possible intervention. Left lower extremity findings: Left common iliac artery is patent. Left external iliac artery patent. Left internal iliac artery is patent. Left common femoral artery is patent. Distal common femoral artery has patent stent that extends into the SFA. Patent profunda artery. Left SFA has diffuse mild luminal irregularities. Patent popliteal artery. Below the knee anterior tibial artery is subtotally occluded. Good two-vessel runoff to the foot with posterior tibial artery and peroneal artery.. Right lower extremity findings: Right common iliac artery is patent. Right external iliac artery is patent. Right common femoral artery is patent. Right SFA is patent. Right profunda artery is patent. Right popliteal artery is patent. Below the knee has single-vessel runoff with patent posterior tibial artery. Anterior tibial artery and peroneal artery are totally occluded with collateral flow.. Conclusions Below the knee bilateral peripheral artery disease. Given presentation is with claudication, will uptitrate medical therapy at this time. Recommendations Increase dose of cilostazol to 100mg BID. Outpatient cardiology follow up in 2 weeks. Access Site Site: Right Femoral artery Sheath Size: 6 Fr Hemost... Method: Mynx Hemost... Success: Successful Procedure Details Findings Procedure Consent Obtained. Admit Source: Out Patient. Pre-Procedure Time Out. Identified patient by full name and date of as verbalized by the patient/guarantor. Does the consent match the physician's order: Yes. Accurate & Complete Informed Consent: Yes. Inpatient/Outpatient History & Physical on Chart: Yes. If H&P is completed, is and addenduem needed: No; If yes, is the addendum complete: N/A. Visualize and Verify Site with Patient/Guarantor: N/A. Relevant Radiology Images available: Yes. Pre-op teaching completed and patient verbalized understanding. The risks, benefits, and alternatives of sedation and/or procedure were discussed by physician. The patient agrees to continue. Procedure started. PERRLA. Strong, equal hand parking garage manager bilaterally. Lungs clear x 5 lobes. IV Site on Arrival: 20 gauge in the right anticubital. IV Fluids: 0.9% NaCl at KVO. 0 mL infused prior to manager cath lab. Pre Procedural Pulses: bilateral dorsalis pedis was 1+. Pre Procedural Pulses: bilateral posterior tibial was 3+. Pre Procedural Pulses: bilateral radial was 3+. Oxygen started at 2liters/min via nasal canula. bilateral groins was prepped with chloroprep then draped in the usual sterile fashion. Baseline sample Acquired. HR: 58 BPM. Physician arrived. Physician scrubbed in. Immediate Pre-Procedure Time Out. Correct Patient: Yes; Correct Procedure: Yes; Correct Site: Yes; Correct Patient Position: Yes; Correct Supplies: Yes; Dried Flammable Prep: Yes; Blood Products Available: N/A;. Lidocaine 1% infiltrated to the right groin. Arterial access obtained with micropuncture set. A 5FrFr UF catheter in over wire. Abdominal aortogram with runoff performed in AP @ 10 mL/sec for a total of 30 mL. Glidewire inserted. Catheter advanced to the left external iliac artery. Left external iliac selected and arteriogram with runoff performed @ 10 mL/sec for a total of 30 mL. DSA performed of the left lower leg. Left superficial femoral selected and arteriogram performed. Catheter removed OTW. Sheath injected in Right common femoral artery and runoff performed. DSA performed of the right lower leg. A Mynx was successful obtaining hemostatsis at the Right Femoral artery insertion site. Post Procedure: Pulses reassessed and unchanged. PERRLA. Strong, equal hand parking garage manager bilaterally. No VTE prophylaxis required. Medication's Wasted: Other = Fentanyl 50mcg Versed 1 mg. Medication's Wasted: Heparin = 1000 units. Total IV fluids: 50 mL. Post-op diagnosis: PAD. Complications: None. Estimated blood loss: 5mL-10mL. Responsiveness - Normal response to verbal stimuli; alert and oriented, PERRLA. Airway - Unaffected, no intervention required; spontaneous ventilation. Circulation: W/N/L, pulses unchanged. Nausea/Vomiting: No. Procedure completed. Patient transferred by stretcher to CPRU. Vital chart was stopped. Procedure Medications Start: 8:55 AM Stop: 8:55 AM Medication: Versed Amount: 1 mg Route: I.V. Start: 8:55 AM Stop: 8:55 AM Medication: Fentanyl Amount: 50 mcg Route: I.V. Start: 9:01 AM Stop: 9:01 AM Medication: Fentanyl Amount: 25 mcg Route: I.V. Start: 9:05 AM Stop: 9:05 AM Medication: Versed Amount: 1 mg Route: I.V. Start: 9:20 AM Stop: 9:20 AM Medication: Fentanyl Amount: 25 mcg Route: I.V. Start: 9:25 AM Stop: 9:25 AM Medication: Versed Amount: 1 mg Route: I.V. Start: 9:25 AM Stop: 9:25 AM Medication: Fentanyl Amount: 25 mcg Route: I.V. I, the attending physician, have reviewed and verified all procedure medications. Yes, all medications given per verbal order History/Risk Factors Hypertension: Yes Dyslipidemia: No Peripheral Arterial Disease (PAD): Yes Obesity: No Renal Disease: No Tobacco Use: Current/Recent(w/in 1 year) Prior Interventions PCI: No CABG: No Valve Surgery: No Report Signatures Finalized by Dominic Bryant MD on 10/30/2024 10:26 AM
[2024-10-12] MEDS: diphenhydrAMINE 50 mg Capsule PO (08:07)
--- NOTE | 2024-10-12 08:15 | SUR.PHASEII ---
POST OP NOTE Received patient from research lab assistant. Status post cardiac catheterization via the right radial approach. TR Band in place- 15 ml air in the band. Verbal post cath instuctions went over with the patient/family. They understood well. No pain reported. Call light within reach. Informed to call for needs. Vitals and assessments per flowsheet. Post op fluids- 100 ml/hr of normal saline per verbal order.
--- NOTE | 2024-10-12 08:46 | W.PM.OPSFHP ---
Same Day Surgery H&P Indication for Procedure/HPI DATE OF PROCEDURE: October 12, 2024 CHIEF COMPLAINT/INDICATIONFOR SURGICAL PROCEDURE: Severe bilateral lifestyle limiting claudication PREOP DIAGNOSIS: Severe bilateral lifestyle limiting claudication PLANNED PROCEDURE: Operation Date: 10/12/24 08:30 Proposed Procedures p Peripheral Diagnostic - Periph angio bilat(Bilateral) - Dominic Bryant M.D Possible percutaneous peripheral intervention 64 year old man with significant PAD history and having severe lifestyle limiting claudication. CTA showing severe PAD mainly below the knee. Left leg symptoms worse than the right side. Plan for peripheral angiogram with possible intervention Medications/Allergies* Home Medications ?Medication ?Instructions ?Recorded ?Confirmed ?Type lisinopril 5 mg tablet 10 mg PO DAILY 05/21/21 10/08/24 History meloxicam 15 mg tablet 15 mg PO DAILY 03/19/22 10/08/24 History nystatin 100,000 unit/gram topical 1 applic topical BID PRN Rash 03/19/22 10/08/24 History cream acetaminophen 500 mg capsule 500 mg PO QID PRN Pain 07/05/22 10/08/24 History bupropion HCl 150 mg 24 hr tablet, 150 mg PO QAM 01/01/24 10/08/24 History extended release buspirone 10 mg tablet 10 mg PO BID 01/01/24 10/08/24 History atorvastatin 20 mg tablet 20 mg PO DAILY 10/08/24 10/12/24 History cilostazol 50 mg tablet 50 mg PO BID 10/08/24 10/08/24 History ergocalciferol (vitamin D2) 1,250 1,250 mcg PO DAILY 10/08/24 10/08/24 History mcg (50,000 unit) capsule (Vitamin D2) Allergies/Adverse Reactions Allergy/AdvReac Type Severity Reaction Status Date / Time No Known Allergies Allergy Verified 10/12/24 08:03 Current Medications: Generic Name Dose Route Start Last Admin Trade Name Freq PRN Reason Stop Dose Admin Sodium Chloride 1,000 mls @ 50 mls/hr 10/12/24 07:30 10/12/24 08:07 Sodium Chloride 0.9% IV 10/13/24 03:29 Not Given .Q20H ONE Pertinent History/Comorbid Conditions* Medical History (Updated 07/05/22 @ 10:20 by CRISTAL Isabel) Peripheral artery disease HTN (hypertension) Claudication, class III Surgical History (Updated 07/04/21 @ 11:31 by CRISTAL Isabel) S/P appendectomy S/P rotator cuff repair S/P cholecystectomy Family History (Updated 05/21/21 @ 12:21 by Monica George, RN) Diabetes CAD (coronary artery disease) Myocardial infarct Father Brother Hypertension Mother Social History Smoking and tobacco/nicotine status: current every day tobacco/nicotine user cigarettes Packs smoked per day: 2 Years cigarettes smoked: 45 Pertinent Exam Findings alert, oriented x 3, clear to auscultation bilaterally and regular rate & rhythm Conscious Sedation Assessment PATIENT ASSESSED PRIOR TO SEDATION, WITH NO CHANGE NOTED: Yes AIRWAY EVAL/ANESTHESIA PLAN: normal airway, ASA III, Local Anesthesia, Risks, benefits & alternatives of sedation and/or procedure discussed and Patient agrees to continue as planned ADDITIONAL INFORMATION: Moderate sedation Recommendations Risks and benefits of procedure reviewed and Patient/family agree to proceed Surgery/Procedure today (Peripheral angiogram with possible intervention) Coding Level of Care Code Acute Code for Ronnie Holloway
--- NOTE | 2024-10-12 09:40 | SUR.PHASEI ---
Received patient from the medical lab specialist. Status post Peripheral angiogram via the right femoral approach. Right femoral access site is mynx closed. Site hemostatic and free of hematoma or active bleeding. See PCS documentation for the assessments. Verbal post cath instructions went over with the patient. He understood well. Informed to call for needs. Post op fluids set at 100 ml/hr per verbal order from Dr Bryant.
--- NOTE | 2024-10-12 09:48 | SUR.PHASEI ---
post cath IV fluids set at 100 ml/hr per verbal order from DR Bryant.
[2024-10-12] MEDS: sodium chloride 0.9% 1,000 ML 100 ML IV (10:00)
--- NOTE | 2024-10-12 10:50 | PM.PROC ---
Procedure Note: Date of procedure: 10/12/24 Pre-procedure diagnosis: Severe bilateral claudication/ PAD history Post-procedure diagnosis: other Procedure: Patent peripheral artery till the knee. Left lower extremity has occluded anterior tibial artery. Excellent two-vessel runoff. Sluggish flow. Right lower extremity has patent vessels still the knee. Below the knee has patent posterior tibial artery. Collateral flow otherwise. Aggressive medical therapy. Exercise. Uptitrate cilostazol to 100mg BID. Smoking cessation Performing Provider: Dominic Bryant Estimated blood loss (mL): 5 Complications: None Condition: stable Disposition: same day Coding Level of Care Code Acute Code for Yeg Fwshannon
--- NOTE | 2024-10-12 11:05 | PC.NURSE ---
received in to room 111-1 from [employer] [employer],via stretcher,at 1015.report received.pt is awake and alert.denies pain.sr/sb on monitor.right groin cath site was minx device closed in [employer].drsg is dry and intact.no hematoma noted.bilat dp/pt pulses doppled.right leg is warm to touch and with brisk capillary refill.pt instructed in activity restrictions s/p femoral artery procedure...and instructed to notify staff for any bleeding,pain,numbness,or for any concerns at all.pt verb understanding of instructions
--- NOTE | 2024-10-12 13:51 | PM.SDS ---
Short Stay Summary Providers Date of Admit/Discharge: 10/12/24 Attending Provider: Dominic Bryant M.D Primary Care Provider: Scot Reina MD Chief Complaint: I73.9 HPI History of Present Illness Singh Thapa is a 64 year old male Home Meds/Allergies Home Medications and Allergies Home Medications ?Medication ?Instructions ?Recorded ?Confirmed ?Type lisinopril 5 mg tablet 10 mg PO DAILY 05/21/21 10/08/24 History meloxicam 15 mg tablet 15 mg PO DAILY 03/19/22 10/08/24 History nystatin 100,000 unit/gram topical 1 applic topical BID PRN Rash 03/19/22 10/08/24 History cream acetaminophen 500 mg capsule 500 mg PO QID PRN Pain 07/05/22 10/08/24 History bupropion HCl 150 mg 24 hr tablet, 150 mg PO QAM 01/01/24 10/08/24 History extended release buspirone 10 mg tablet 10 mg PO BID 01/01/24 10/08/24 History atorvastatin 20 mg tablet 20 mg PO DAILY 10/08/24 10/12/24 History cilostazol 50 mg tablet 50 mg PO BID 10/08/24 10/08/24 History ergocalciferol (vitamin D2) 1,250 1,250 mcg PO DAILY 10/08/24 10/08/24 History mcg (50,000 unit) capsule (Vitamin D2) Allergies Allergy/AdvReac Type Severity Reaction Status Date / Time No Known Allergies Allergy Verified 10/12/24 08:03 PFSH Acute PFSH: Medical History Peripheral artery disease HTN (hypertension) Claudication, class III Surgical History S/P appendectomy S/P rotator cuff repair S/P cholecystectomy Family History Father Myocardial infarct Mother Hypertension Brother Myocardial infarct Other CAD (coronary artery disease) Diabetes Social History Smoking and tobacco/nicotine status: current every day tobacco/nicotine user cigarettes Packs smoked per day: 2 Years cigarettes smoked: 45 Vitals/I&O/Wt Last Vital Signs Temp 97.9 F 10/12/24 07:30 Pulse 57 L 10/12/24 12:45 Resp 14 10/12/24 12:45 BP 117/68 10/12/24 12:45 Pulse Ox 96 10/12/24 12:45 O2 Del Method Room Air 10/12/24 10:15 Weight last 48 hrs Weight 194 lb SSS Data Data Completed and Pending: Pending at discharge Category Date Time 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 Routin e Exams 10/12/24 07:30 Ordered Partial Thrombopl astin Time Routine Lab 10/12/24 15:00 Ordered Discharge Plan Discharge Patient Disposition: Home Prescriptions: No Action lisinopril 5 mg tablet 10 mg PO DAILY acetaminophen 500 mg capsule 500 mg PO QID PRN (Reason: Pain) meloxicam 15 mg tablet 15 mg PO DAILY nystatin 100,000 unit/gram cream 1 applic topical BID PRN (Reason: Rash) bupropion HCl 150 mg tablet extended release 24 hr 150 mg PO QAM buspirone 10 mg tablet 10 mg PO BID aspirin 81 mg tablet,delayed release (DR/EC) 81 mg PO DAILY Qty: 90 1RF clopidogrel 75 mg tablet 75 mg PO DAILY Qty: 90 3RF ergocalciferol (vitamin D2) [Vitamin D2] 1,250 mcg (50,000 unit) Capsule 1,250 mcg PO DAILY atorvastatin 20 mg tablet 20 mg PO DAILY Rx Instructions: Take 1 tablet by mouth in the evening cilostazol 50 mg tablet 50 mg PO BID Referrals: Scot Reina MD [Primary Care Provider, Family Practice] Patient Instructions: Peripheral Vascular Angioplasty (DC), Post Angiogram Home Care Instructions Print Language: Chinese Coding Level of Care Code Acute Code for Chg Fwd
--- NOTE | 2024-10-12 13:53 | P.DS_ITS ---
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 Exams 10/12/24 07:30 Ordered Partial Thromboplastin Time Routine Lab 10/12/24 15:00 Ordered Vitals Last Vital Signs Temp 97.9 F 10/12/24 07:30 Pulse 57 L 10/12/24 12:45 Resp 14 10/12/24 12:45 BP 117/68 10/12/24 12:45 Pulse Ox 96 10/12/24 12:45 O2 Del Method Room Air 10/12/24 10:15 Discharge Plan Discharge Patient Disposition: Home Prescriptions: No Action lisinopril 5 mg tablet 10 mg PO DAILY acetaminophen 500 mg capsule 500 mg PO QID PRN (Reason: Pain) meloxicam 15 mg tablet 15 mg PO DAILY nystatin 100,000 unit/gram cream 1 applic topical BID PRN (Reason: Rash) bupropion HCl 150 mg tablet extended release 24 hr 150 mg PO QAM buspirone 10 mg tablet 10 mg PO BID aspirin 81 mg tablet,delayed release (DR/EC) 81 mg PO DAILY Qty: 90 1RF clopidogrel 75 mg tablet 75 mg PO DAILY Qty: 90 3RF ergocalciferol (vitamin D2) [Vitamin D2] 1,250 mcg (50,000 unit) Capsule 1,250 mcg PO DAILY atorvastatin 20 mg tablet 20 mg PO DAILY Rx Instructions: Take 1 tablet by mouth in the evening cilostazol 50 mg tablet 50 mg PO BID Referrals: Scot Reina MD [Primary Care Provider, Family Practice] Patient Instructions: Peripheral Vascular Angioplasty (DC), Post Angiogram Home Care Instructions Print Language: Italian Coding Level of Care Code Acute Code for Chg Fwd
--- NOTE | 2024-10-12 13:54 | P.SS_ITS ---
<Statement entered by Dominic Bryant M.D - 10/12/24 23:19> Patient was cared for in conjunction with an advanced practice practitioner. I reviewed the chart and all pertinent data including imaging, telemetry, and laboratory results. I discussed the patient in detail with the advanced practice practitioner. Please see their note for agreed upon plan of care and results for the patient. Patient has below the knee with 2 vessel runoff of left lower extremity and patent Posterior tibial artery and collateralized AT and peroneal arteries on the right lower extremities. Aggressive medical therapy, uptitrate cilostazol, smoking cessation Documented by User: CRISTAL Isabel 10/12/24 14:11 Short Stay Summary Providers Date of Admit/Discharge: 10/12/24 Attending Provider: Dominic Bryant M.D Primary Care Provider: Scot Reina MD Chief Complaint: I73.9 HPI History of Present Illness Singh Thapa is a 64 year old male with past medical history of PAD, smoking, previous intervention on the left mid SFA in 2021. He had been noting worsening claudication. He had a CTA of the aorta with runoff performed 09/09/2024 showing proximal anterior tibial artery occlusion with distal reconstitution. Review of Systems Const: Denies: fever(s), chills, change in weight, fatigue or diaphoresis Eyes: Denies: change in vision ENMT: Denies: epistaxis Card: Reports: dyspnea on exertion and leg pain with exertion; Denies: chest pain, palpitations, irregular heart rhythm, edema, syncope, pre- syncope or orthopnea Resp: Denies: dyspnea, productive cough or wheezing GI: Denies: nausea, vomiting, hematemesis, hematochezia or melena : Denies: hematuria Musc: Denies: extremity swelling Timothy/Lymph: Denies: easy bruising or easy bleeding Home Meds/Allergies Home Medications and Allergies Home Medications ?Medication ?Instructions ?Recorded ?Confirmed ?Type lisinopril 5 mg tablet 10 mg PO DAILY 05/21/2109/17 History meloxicam 15 mg tablet 15 mg PO DAILY 03/19/2209/17 History Held on 10/12/24. Instructions: discuss at follow up visit nystatin 100,000 unit/gram topical 1 applic topical BI D PRN Rash 03/19/22 10/08/24 History cream acetaminophen 500 mg capsule 500 mg PO QID PRN Pain 10/08/24 History bupropion HCl 150 mg 24 hr tablet, 150 mg PO QAM 12/3110/08/24 History extended release buspirone 10 mg tablet 10 mg PO BID 01/01/24 History atorvastatin 20 mg tablet 20 mg PO DAILY 10/08/24 05/12/10 History ergocalciferol (vitamin D2) 1,250 1,250 mcg PO DAILY 0 10/08/24 10/08/24 History mcg (50,000 unit) capsule (Vitamin D2) Allergies Allergy/AdvReac Type Severity Reaction Status Date / Time No Known Allergies Allergy Verified 10/12/24 08:03 PFSH Acute PFSH: Medical History Peripheral artery disease HTN (hypertension) Claudication, class III Surgical History S/P appendectomy S/P rotator cuff repair S/P cholecystectomy Family History Father Myocardial infarct Mother Hypertension Brother Myocardial infarct Other CAD (coronary artery disease) Diabetes Social History Smoking and tobacco/nicotine status: current every day tobacco/nicotine user cigarettes Packs smoked per day: 2 Years cigarettes smoked: 45 Vitals/I&O/Wt Last Vital Signs Temp 97.9 F 10/12/24 07:30 Pulse 57 L 10/12/24 12:45 Resp 14 10/12/24 12:45 BP 117/68 10/12/24 12:45 Pulse Ox 96 10/12/24 12:45 O2 Del Method Room Air 10/12/24 10:15 Weight last 48 hrs Weight 194 lb Physical Exam Const: COMMON NORMALS: no acute distress and patient oriented x3 GENERAL APPEARANCE: cooperative ORIENTATION/CONSCIOUSNESS: Yes awake, Yes oriented to person, Yes oriented to place and Yes oriented to time Chest: COMMONS NORMALS: normal inspection of the chest and normal palpation of entire chest wall CHEST: Yes Symmetrical chest wall rise Resp: COMMON NORMALS: normal respiratory effort, No retractions, No use of accessory muscles and clear to auscultation bilaterally AUSCULTATION: clear to auscultation bilaterally Cardio: COMMON NORMALS: regular rate, regular rhythm, S1 normal heart sound present, S2 normal heart sound present, No gallops present (Cardio), No clicks present (Cardio), No murmurs present (Cardio) and No rub (Cardio) RATE: regular rate RHYTHM: regular rhythm HEART SOUNDS: S1 normal heart sound present and S2 normal heart sound present PERIPHERAL PULSES: radial pulses present positive right 2+ and femoral pulses present positive right 2+ Neuro: COMMON NORMALS: patient oriented x3 and moves all extremities SENSORIUM/ORIENTATION: Yes oriented to person, Yes oriented to place and Yes oriented to time Skin: WOUNDS: Yes surgical site (no hematoma palpable) Details: no odor Hospital Course Hospital Course He was brought in for peripheral angiogram today, finding left anterior tibial artery was occluded, two-vessel runoff with sluggish flow. Right lower extremity had patent vessels below the knee, patent posterior tibial artery. Medical management advised with up titration of cilostazol to 100 mg twice a day, increase exercise. Recommend smoking cessation. Plan to discharge home today after bedrest is completed. Follow-up in the cardiology clinic in 7 to 10 days. 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 Routin e Exams 10/12/24 07:30 Ordered Partial Thrombopl astin Time Routine Lab 10/12/24 15:00 Ordered Discharge Plan Discharge Patient Disposition: Home Prescriptions: New cilostazol 100 mg tablet 100 mg PO BID Qty: 180 3RF Continued lisinopril 5 mg tablet 10 mg PO DAILY acetaminophen 500 mg capsule 500 mg PO QID PRN (Reason: Pain) nystatin 100,000 unit/gram cream 1 applic topical BID PRN (Reason: Rash) bupropion HCl 150 mg tablet extended release 24 hr 150 mg PO QAM buspirone 10 mg tablet 10 mg PO BID aspirin 81 mg tablet,delayed release (DR/EC) 81 mg PO DAILY Qty: 90 1RF clopidogrel 75 mg tablet 75 mg PO DAILY Qty: 90 3RF ergocalciferol (vitamin D2) [Vitamin D2] 1,250 mcg (50,000 unit) Capsule 1,250 mcg PO DAILY atorvastatin 20 mg tablet 20 mg PO DAILY Rx Instructions: Take 1 tablet by mouth in the evening Held meloxicam 15 mg tablet 15 mg PO DAILY Hold Instructions: discuss at follow up visit Discontinued cilostazol 50 mg tablet 50 mg PO BID Discharge Orders: Discharge Order (Routine); Ordered 10/12/24 Ordered By: Lisa Zazueta Referrals: Lisa Zazueta FNP [Nurse Practitioner, Cardiology] - 10/19/24 1:30 pm Scot Reina MD [Primary Care Provider, Family Practice] - 10/18/24 8:30 am Diet: Advance as tolerated Activity: Increase activity as tolerated Patient Instructions: Cilostazol (By mouth) (Pletal), Post Angiogram Home Care Instructions Activity Restrictions/Additional Instructions: No lifting over 5 pounds for the next 4 days. Stand Alone Forms: Work/School Release Print Language: Monegasque Discharge Date/Time: 10/12/24 15:43 Attestations Medical Necessity Statement*: plan to discharge today Time Spent in Patient Care*: less than 30 min Quality Metrics Clinical Quality Measures: [ No reported AMI, CVA or VTE this stay ] Coding Level of Care Code Acute Code for Chg Fwd Documented by User: Dominic Bryant M.D 10/12/24 23:17 Short Stay Summary Providers Date of Admit/Discharge: 10/12/24 Chief Complaint: I73.9 Home Meds/Allergies Home Medications and Allergies Home Medications ?Medication ?Instructions ?Recorded ?Confirmed ?Type lisinopril 5 mg tablet 10 mg PO DAILY 05/21/2109/17 History meloxicam 15 mg tablet 15 mg PO DAILY 03/19/2209/17 History Held on 10/12/24. Instructions: discuss at follow up visit nystatin 100,000 unit/gram topical 1 applic topical BI D PRN Rash 03/19/22 10/08/24 History cream acetaminophen 500 mg capsule 500 mg PO QID PRN Pain 10/08/24 History bupropion HCl 150 mg 24 hr tablet, 150 mg PO QAM 12/3110/08/24 History extended release buspirone 10 mg tablet 10 mg PO BID 01/01/24 History atorvastatin 20 mg tablet 20 mg PO DAILY 10/08/2409/17 History ergocalciferol (vitamin D2) 1,250 1,250 mcg PO DAILY 0 10/08/24 10/08/24 History mcg (50,000 unit) capsule (Vitamin D2) Allergies Allergy/AdvReac Type Severity Reaction Status Date / Time No Known Allergies Allergy Verified 10/12/24 08:03 PFSH Acute PFSH: Medical History Peripheral artery disease HTN (hypertension) Claudication, class III Surgical History S/P appendectomy S/P rotator cuff repair S/P cholecystectomy Family History Father Myocardial infarct Mother Hypertension Brother Myocardial infarct Other CAD (coronary artery disease) Diabetes Social History Smoking and tobacco/nicotine status: current every day tobacco/nicotine user cigarettes Packs smoked per day: 2 Years cigarettes smoked: 45 Hospital Course Hospital Course He was brought in for peripheral angiogram today, finding left anterior tibial artery was occluded, two-vessel runoff with sluggish flow. Right lower extremity had patent vessels below the knee, patent posterior tibial artery. Medical management advised with up titration of cilostazol to 100 mg twice a day, increase exercise. Recommend smoking cessation. Plan to discharge home today after bedrest is completed. Follow-up in the cardiology clinic in 7 to 10 days. Discharge Plan Discharge Patient Disposition: Home Prescriptions: New cilostazol 100 mg tablet 100 mg PO BID Qty: 180 3RF Continued lisinopril 5 mg tablet 10 mg PO DAILY acetaminophen 500 mg capsule 500 mg PO QID PRN (Reason: Pain) nystatin 100,000 unit/gram cream 1 applic topical BID PRN (Reason: Rash) bupropion HCl 150 mg tablet extended release 24 hr 150 mg PO QAM buspirone 10 mg tablet 10 mg PO BID aspirin 81 mg tablet,delayed release (DR/EC) 81 mg PO DAILY Qty: 90 1RF clopidogrel 75 mg tablet 75 mg PO DAILY Qty: 90 3RF ergocalciferol (vitamin D2) [Vitamin D2] 1,250 mcg (50,000 unit) Capsule 1,250 mcg PO DAILY atorvastatin 20 mg tablet 20 mg PO DAILY Rx Instructions: Take 1 tablet by mouth in the evening Held meloxicam 15 mg tablet 15 mg PO DAILY Hold Instructions: discuss at follow up visit Discontinued cilostazol 50 mg tablet 50 mg PO BID Discharge Orders: Discharge Order (Routine); Ordered 10/12/24 Ordered By: Lisa Zazueta Referrals: Lisa Zazueta FNP [Nurse Practitioner, Cardiology] - 10/19/24 1:30 pm Scot Reina MD [Primary Care Provider, Family Practice] - 10/18/24 8:30 am Diet: Advance as tolerated Activity: Increase activity as tolerated Patient Instructions: Cilostazol (By mouth) (Pletal), Post Angiogram Home Care Instructions Activity Restrictions/Additional Instructions: No lifting over 5 pounds for the next 4 days. Stand Alone Forms: Work/School Release Print Language: Monegasque Discharge Date/Time: 10/12/24 15:43 Coding Level of Care Code Acute Code for Chg Fwd
--- NOTE | 2024-10-12 15:35 | PC.NURSE ---
pt maintained bedrest for 4 hours.ambulated several times in [place].vss.no hematoma noted in right groin.vss.discharge instructions given and explained.pt verb understanding of instructions.discharged via w/c to exit at this time.spouse to drive pt home.
== END 2024-10-12 15:43 | disposition home or self-care (01) ==
LOC: CCL 07:07 → CSU 09:59
PROVIDERS: PCP Family Medicine; Visit Provider Internal Medicine
DX: I70.213 Atherosclerosis of native arteries of extremities with intermittent claudication, bilateral legs (principal); Z95.5 Presence of coronary angioplasty implant and graft; I10 Essential (primary) hypertension; F17.210 Nicotine dependence, cigarettes, uncomplicated; Z79.82 Long term (current) use of aspirin
CPT/HCPCS: 36415; 75625; 75716; 99152; 99153; C1760; C1769; C1887; C1894; G0269; J1644; J2250; J3010; J3490; J7030; J9999; Q0163; Q9967

== ENCOUNTER → 2024-10-19 14:05 | Outpatient (BNVA) | payer BC, SELFPAY | PROVIDERS: PCP Family Medicine; Visit Provider Nurse Practitioner Family | DX: I73.9 Peripheral vascular disease, unspecified (principal) | CPT/HCPCS: 36415; 80048; 85610 ==